=== PATIENT | male | born 1990 ===

== ENCOUNTER 2017-05-31 19:46 | Emergency (ER) | payer SELFPAY ==
[2017-05-31] MEDS ORDERED: Sodium Chloride 0.9% 1,000 ML IV STA (20:56)
[2017-05-31 21:39] LABS: VENOUS BLOOD GAS PCO2 43 mmHg (40-60); VENOUS BLOOD GAS PO2 22 mm/Hg (30-55); VENOUS BLOOD PH 7.46 (7.32-7.43)
--- NOTE | 2017-05-31 21:48 | ED PDOC ---
HPI: General Adult Time Seen by Provider: 05/31/17 20:32 Chief Complaint (Nursing): Flu-like Symptoms History Per: Patient Additional Complaint(s): Pt. states this morning he woke up feeling febrile with sore throat. States while he was sitting down waiting for the train he passed out as he was feeling weak. pt. is uncertain for how long he was unconscious for. He was advised by EMS to come to ED but he refused as he felt better after regaining consciousness. Further states fever and bodyaches worsened as the day progressed prompting ED visit. Denies SOB, hemoptysis, chest pain, palpitations , rash, recent travel. Past Medical History Reviewed: Historical Data, Nursing Documentation, Vital Signs Vital Signs: Last Vital Signs Temp 100.2 F H 05/31/17 23:22 Pulse 73 05/31/17 23:29 Resp 16 05/31/17 23:22 BP 107/69 05/31/17 23:22 Pulse Ox 95 05/31/17 23:29 - Family History Family History: States: No Known Family Hx - Home Medications Home Medications: Ambulatory Orders Medication Instructions Recorded Oseltamivir Phosphate [Tamiflu] 75 mg PO BID #10 capsule 05/31/17 - Allergies Allergies/Adverse Reactions: Allergies Allergy/AdvReac Type Severity Reaction Status Date / Time shrimp Allergy ANAPHYLAXIS Verified 05/31/17 19:51 Review of Systems ROS Statement: Except As Marked, All Systems Reviewed And Found Negative Constitutional: Positive for: Fever, Weakness, Malaise ENT: Positive for: Throat Pain Physical Exam - Reviewed Nursing Documentation Reviewed: Yes Vital Signs Reviewed: Yes - Physical Exam Appears: Positive for: Well, Non-toxic, No Acute Distress Head Exam: Positive for: ATRAUMATIC, NORMAL INSPECTION, NORMOCEPHALIC Skin: Positive for: Normal Color, Warm. Negative for: Rash Eye Exam: Positive for: EOMI, Normal appearance, PERRL ENT: Positive for: Normal ENT Inspection Neck: Positive for: Normal, Painless ROM Cardiovascular/Chest: Positive for: Regular Rate, Rhythm Respiratory: Positive for: CNT, Normal Breath Sounds Gastrointestinal/Abdominal: Positive for: Normal Exam, Bowel Sounds, Soft. Negative for: Tenderness Back: Positive for: Normal Inspection Extremity: Positive for: Normal ROM Neurologic/Psych: Positive for: Alert, Oriented. Negative for: Aphasia, Facial Droop - Laboratory Results Result Diagrams: 05/31/17 21:25 05/31/17 21:25 - ECG ECG: Positive for: Interpreted By Me ECG Rhythm: Positive for: Sinus Rhythm. Negative for: ST/T Changes Rate: 73 O2 Sat by Pulse Oximetry: 95 - Radiology X-Ray: Interpreted by Me (CXR) X-Ray Interpretation: No Acute Disease - Progress ED Course And Treament: Labs ordered. CXR ordered. IV NS bolus x1, tylenol 975mg PO ordered. EKG ordered. Tamiflu 75mg PO ordered. 2325 On re-evaluation, pt. reports feeling better. Repeat temp: 100.2. Labs reviewed with patient and instructed to continue taking Tylenol and Motrin at home for fever. Disposition - Clinical Impression Clinical Impression: Influenza-like symptoms, Syncope - Patient ED Disposition Is Patient to be Admitted: No - Disposition Referrals: [facility] [place] [Outside] [facility] [Outside] Disposition: Routine/Home Disposition Time: 23:26 Condition: STABLE Additional Instructions: Follow up with your PMD in 2 days for further evaluation. Drink plenty of fluids. Rest. Continue taking Tylenol or Motrin at home for fever. Prescriptions: Oseltamivir Phosphate [Tamiflu] 75 mg PO BID #10 capsule Instructions: Influenza (ED) Forms: [facility] ([place]), [facility] ED School/Work Excuse Print Language: EGYPTIAN
[2017-05-31 21:56] LABS: ALB/GLOB RATIO 1.2 (1.0-2.1); ALBUMIN 4.3 g/dL (3.5-5.0); ALT/SGPT 34 U/L (21-72); AST/SGOT 26 U/L (17-59); BLOOD UREA NITROGEN 16 mg/dl (9-20); CALCIUM 9.4 mg/dL (8.4-10.2); GFR AFRICAN-AMERICAN > 60; GFR NON-AFRICAN AMERICAN > 60
[2017-05-31 22:03] LABS: BASO % 0.3 % (0.0-2.0); EOS % 0.3 % (0.0-4.0); HEMOGLOBIN 15.6 g/dL (12.0-18.0); LYMPH # 0.9 K/uL (1.0-4.3); LYMPH % 9.6 % (20.0-40.0); MEAN CELL VOLUME 88.6 fl (80.0-94.0); MEAN CORPUSCULAR HEMOGLOBIN 30.4 pg (27.0-31.0); MEAN CORPUSCULAR HGB CONC 34.3 g/dL (33.0-37.0); MEAN PLATELET VOLUME 8.6 fl (7.2-11.7); MONO % 11.1 % (0.0-10.0); NEUT # 7.1 K/uL (1.8-7.0); NEUT % 78.7 % (50.0-75.0); NRBC % 0.6 % (0.0-0.0); PLATELET COUNT 167 K/uL (130-400); RBC 5.15 Mil/uL (4.40-5.90); RED CELL DISTRIBUTION WIDTH 13.1 % (11.5-14.5)
[2017-05-31 22:50] VITALS: BMI 27.2
[2017-05-31 22:58] LABS: BANDS 3 % (0-2); BASOPHIL 1 % (0-2); EOSINOPHIL 1 % (0-7); LYMPHOCYTE 9 % (20-50); MONOCYTE 7 % (0-10); NEUTROPHIL 78 % (42-75); PLATELET ESTIMATE NORMAL (NORMAL); REACTIVE LYMPHOCYTES 1 % (0-0); TOTAL CELLS COUNTED 100
[2017-05-31 22:59] LABS: HYPOCHROMIC SLIGHT
[2017-05-31 23:01] LABS: URINE BILIRUBIN NEGATIVE (NEGATIVE); URINE BLOOD NEGATIVE (NEGATIVE); URINE CLARITY SLIGHTY-CLOUDY (Clear); URINE COLOR YELLOW (YELLOW); URINE GLUCOSE (UA) NEG (Normal); URINE LEUKOCYTE ESTERASE NEG Leu/uL (Negative); URINE NITRATE NEGATIVE (NEGATIVE); URINE PROTEIN NEGATIVE (NEGATIVE); URINE UROBILINOGEN 0.2-1.0 mg/dL (0.2-1.0)
[2017-05-31 23:22] VITALS: BP 107/69; RESP 16; TEMP 100.2
[2017-05-31 23:26] VITALS: PULSE 73; O2SAT 95
--- NOTE | 2017-06-01 11:37 | RAD ---
HISTORY: clearance COMPARISON: No prior. FINDINGS: LUNGS: No active pulmonary disease. PLEURA: No significant pleural effusion identified, no pneumothorax apparent. CARDIOVASCULAR: Normal. OSSEOUS STRUCTURES: No significant abnormalities. VISUALIZED UPPER ABDOMEN: Normal. OTHER FINDINGS: None. IMPRESSION: No active disease.
--- NOTE | 2017-06-01 17:52 | CARD ---
APPROVED REPORT EKG Measurement Heart [id number] <Conclusion> Sinus rhythm with marked sinus arrhythmia Left axis deviation Septal infarct, age undetermined T wave abnormality, consider lateral ischemia Abnormal ECG
== END 2017-05-31 23:44 | disposition home or self-care (01) ==
LOC: H.ER 19:46
DX: J11.1 Influenza due to unidentified influenza virus with other respiratory manifestations (principal); R55 Syncope and collapse
CPT/HCPCS: 71045; 80053; 81003; 82803; 85025; 87040; 87070; 87430; 87804; 93005; 96360; 99284; J7040